=== PATIENT | male | born 1975 | race African-American/Black ===

== ENCOUNTER 2020-10-06 17:16 | Emergency (ER) | payer SELFPAY ==
[~2020-10-06] VITALS: Ht 188 cm; Wt 99.8 kg
[2020-10-06] MEDS ORDERED: IOHEXOL 300 MG/ML 100ML BOTTLE IJ ONE (17:56)
[2020-10-06] MEDS ORDERED: TETANUS-DIPTH-ACEL PERTUSSIS 0.5ML SYR Tdap IM ONE (18:15)
[2020-10-06] MEDS ORDERED: ACETAMINOPHEN 325 MG TAB PO ONE (19:00)
[2020-10-06 20:24] VITALS: BP 131/84
== END 2020-10-06 20:02 | disposition home or self-care (01) ==
LOC: ER 17:16 → EDBD 17:16 → ER 20:02
DX: S13.9XXA Sprain of joints and ligaments of unspecified parts of neck, initial encounter (principal); S20.211A Contusion of right front wall of thorax, initial encounter; J18.9 Pneumonia, unspecified organism; Z20.822 Contact with and (suspected) exposure to COVID-19; V43.62XA Car passenger injured in collision with other type car in traffic accident, initial encounter; Y93.89 Activity, other specified; Y92.488 Other paved roadways as the place of occurrence of the external cause; Y99.8 Other external cause status
CPT/HCPCS: 36415; 70450; 71260; 72125; 74177; 87426; 90471; 90715; 99285; C9803; Q9967; U0003; 96372